=== PATIENT | female | born 1945 | race Caucasian/White ===

== ENCOUNTER → 2017-03-17 | Outpatient (CLI) | payer MEDICARE, MEDICAID ==
[~2017-03-17] MED LIST: ALBUTEROL2.5 MG/31 INH; ARTIFICIAL TEA1 EAC1 OPHTH; BENADRYL25 MG PO; CALAN SR GENER180 MG PO; COLACE100 MG PO; COUMADIN ** IA5 MG PO; COUMADIN **IA2.5 MG PO; DULCOLAX10 MG R; FEOSOL325 MG PO; FLORASTOR250 MG PO; GLUCOPHAGE500 MG; GLUCOPHAGE500 MG PO; HYDROCERIN)(MI236 ML TOP; IRON325 M1 PO; LEVOTHROID (SY88 MCG PO; MAXZIDE-25MG 371 TAB PO; MILK OF MA400 MG/5 M PO; MOTRIN400 MG PO; NORCO 5-325 MG1 TAB PO; PEPCID20 MG PO; PERCOCET 5-3251 EACH PO; PRINIVIL (ZESTR20 MG PO; PROBIOTIC1 EAC1 PO; PROTONIX40 MG PO; PROVENTIL2.5 MG/0.5 INH; REFRESH PLUS1 EACH OPHTH; ROXICODONE 5MG (5 MG PO; SODIUM CHLORIDE10 ML IV; TEARGEN1 BOT OPHTH; TRIACET 0.1% 8080 GM TOP; TYLENOL EXTRA500 MG PO; TYLENOL325 MG PO; VALIUM5 MG PO; VANCOMYCIN IV; VANCOMYCIN PO; ZOFRAN4 MG PO; ZYLOPRIM100 MG PO; ZYRTEC10 M3 PO
--- NOTE | ~2017-03-17 | CON ---
PATIENT'S NAME: HANY SUNG [facility] AGE: 71 Y [address] ROOM: [place], [place] [address] LOCATION: [facility] ADMIT DATE: 03/17/2017 Consultation DISCHARGE DATE: FAMILY PHYSICIAN: Apolonia Celis MD ATTENDING PHYSICIAN: Apolonia Celis DATE OF CONSULTATION: 03/17/2017 [id number] encounter time is 10 a.m. to 11:30 a.m. Hany is a 71-year-old white female referred to me by Dr. Apolonia Celis for diabetic self-management education. Her current height is 5 feet 5 inches. Her weight is 209.4 pounds. When I weighed her today, it was 205.8 pounds. BMI is 34.82. Waist circumference is 49 inches. She is a type 2 diabetic since about 2009. She also has hypertension, hyperlipidemia, hyperparathyroidism, GERD, history of pulmonary embolism, osteopenia, and hypothyroidism. Her current medications are lisinopril 20 mg daily, verapamil ER 100 mg daily, metformin 500 mg twice a day, atorvastatin 10 mg daily, levothyroxine 88 mcg daily, calcium 500 mg twice daily, and vitamin D 2000 units once daily. Probiotics in the form of Culturelle once daily. Hany has had some diabetic self-management education prior back in 2009, but she does not really know how many hours that she has had. Her laboratory data consists of an A1c of 8.1% obtained on 02/14/2017 with an average glucose of 186. Her fasting sugar was 166. Her lipid profile obtained on 10/29/2016 showed a total cholesterol 181, HDL 45, LDL 97, and triglycerides 193. Her microalbumin is 150. Her potassium 4.2, BUN 11.0, creatinine 0.84, and EGFR is 71.0. She has not been really obtaining her blood sugars very frequently as she is out of test strips. She has a TRUEtest glucometer that is from her local pharmacy, and she is not sure, she thinks it is at least 5 years old. She tried to check twice a day, but when she was running out, she just did fasting blood sugars. In the last 3 to 4 days, they have ranged from 140 to 160. She does have exercise limitations which are because of her bad knees. She has had one total knee and a fractured patella on the other one in the past. When she is able to exercise, she likes to use the [employer] pool downstairs. That is quite expensive as it costs her $4 for every time she goes, plus she has to take the [employer] bus which is $[address], so a total of $8, and her income is quite limited. She does walk about 8 blocks, which only takes her about 10 minutes, and she tries to do that 3 to 4 times a week. She sees her dentist on a regular basis, has not seen him for about a year, and her teeth are in very good condition. Her next eye exam with Dr. Pamela Miles is next week. She has no signs of retinopathy. Her foot exam was performed today. She has good pedal pulses. She has no appearance of any open sores or calluses. Her skin is somewhat dry. Her toes do not really have any deformity whatsoever. Her toenails are trimmed, but did have a few hooks. She has one toenail on the right foot right great toenail that has been removed, but has some remnant PATIENT'S NAME: HANY SUNG [facility] AGE: 71 Y [address] ROOM: [place] [address] LOCATION: [facility] ADMIT DATE: 03/17/2017 Consultation DISCHARGE DATE: FAMILY PHYSICIAN: Apolonia Celis MD ATTENDING PHYSICIAN: Apolonia Celis still growing back in the toe. The left great toenail tends to ingrow, but there are no signs of any infection or anything at this time. She was able to fill the monofilament in all areas of her feet and, therefore, has no loss of sensation. She does note that occasionally she will get a toe zing, and it is her right third toe that gives it the zing, but it never lasts very long. It can awaken her from sleep, but only occasionally occurs. She is retired. 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 She moved to [place] when she needed to take care of her ageing elderly parents and now lives in [facility]. She prepares all of her meals by herself. She goes out to eat maybe 1 to 2 times a month. When she does, it is usually [place] food or at [employer]. She does go eat the amish meal at [facility] every day at noon Tuesday through Tuesday. It is not served on the weekends. She denies any alcohol use, and she does not smoke. Her weekend schedule and weekday schedule are approximately the same other than going to the congregant meals during the week. She does have some intolerance to pork, and she also notes that lettuce seems to be bother her. Her appetite is good. She has alternating constipation and diarrhea and does not really think that the diarrhea has increased any since going on metformin. Her vitamin supplements consist of calcium and vitamin D. She said when she was first diagnosed with diabetes, that she had a lot of denial. Her main problem right now is just frustration with getting her testing supplies and how difficult it has been. She used to get them at her local pharmacy, and he used to give her the generic brand of glucometer and testing strips, but he no longer is able to sell them to her because he loses money on them and does not get enough for reimbursement. We will need to check in to what her insurance will approve as she is on both [facility] and [facility]. Her day starts out at 5 o'clock in the morning. She gets up and takes her Synthroid. If she has testing strips, she will check her blood sugar. At 6 o'clock, she has coffee. At 7 o'clock, she will have some breakfast which will consist of either oatmeal or active culture yogurt with some peanut butter mixed in it, she despised the plain, or toast with peanut butter or possibly an egg. She does not eat a midmorning snack. For lunch, she eats around 11:30. During the week, she will have a meat, veggie, and fruit, and occasionally some sugar-free dessert that the [facility] prepares. She does not eat any of the bread, and she drinks water or plain coffee. At 3 o'clock in the afternoon, she seems to think she has to have a snack, and of late, it has been cookies and Rice Krispies. We talked about some alternatives to use in place of that. Her evening meal will be from 5:30 to 7, and she will have some mac and cheese, a veggie, and sometimes oatmeal. She goes to bed between 8 and 9 and does not have a bedtime snack. She notes that she does not buy any meat on a regular basis for herself just because of the expense since she gets her protein Tuesday through Tuesday when she eats at the congregant meal. We did discuss that she should be consuming between 90 and 135 g of carbohydrates a day, which she is mainly doing depending on how much macaroni and cheese she has at nighttime. She was also PATIENT'S NAME: HANY SUNG [facility] AGE: 71 Y [address] ROOM: [place] [address] LOCATION: [facility] ADMIT DATE: 03/17/2017 Consultation DISCHARGE DATE: FAMILY PHYSICIAN: Apolonia Celis MD ATTENDING PHYSICIAN: Apolonia Celis encouraged to increase her exercise as much as possible. She does note that her sister is retiring and has a car. So, if she can get her to go to the [employer], that will save her some expense for transportation to and from the pool. We did discuss the plate method and portion control. We also discussed how to read labels. We discussed some of the breads that she may be able to eat at home, but on a limited basis, and some alternatives for her to have for her evening meals without using a lot of meat. She was encourage to get in some more vegetables and fruits. I also told her to eat a bedtime snack of some maltese yogurt; however, she usually eats and goes to bed in about an hour. She may use that maltese yogurt for her midafternoon snack at 3 and see if that will satisfy her. I told her that I would look into seeing what we could get her for testing supplies and see if we could expedite that. I told her that the rule of thumb is to fix fasting first as long as she is not having lows. She does not think she has ever had a hypoglycemic event. We did discuss the signs and symptoms of hypoglycemia and hyperglycemia and also the rule of 15 to treat hypoglycemia. We discussed the pathophysiology of type 2 diabetes and that it is a progressive disease. We also discussed the use of a [employer], which she does have a smartphone. She is going to download that nery and help her keep track of her carbohydrate intake in a little more systematic fashion. She seemed to be excited about this. I will follow up with her again in April when she sees Dr. Celis. Thank you for this interesting consultation, and I look forward to continuing to help Hany with her diabetes journey. ANALISA PIERCE/edgar /[id number] d: 03/18/17 1829 t: 03/22/17 1053, CONSULTATION REPORT
== END | disposition disaster alternative care site (69) ==
LOC: GDIC 09:01
DX: E11.9 Type 2 diabetes mellitus without complications (principal)
CPT/HCPCS: G0108